=== PATIENT | female | born 1995 | race Caucasian/White ===

== ENCOUNTER 2017-06-19 20:41 | Emergency (ER) | payer BC ==
[~2017-06-19] VITALS: Ht 162.6 cm; Wt 110.8 kg
[2017-06-19 20:44] VITALS: BP 130/78; TEMP 98.8
[2017-06-19 21:26] VITALS: PULSE 111
== END 2017-06-19 21:30 | disposition home or self-care (01) ==
LOC: COL.ER 20:41
DX: S96.911A Strain of unspecified muscle and tendon at ankle and foot level, right foot, initial encounter (principal); X50.0XXA Overexertion from strenuous movement or load, initial encounter; Y92.009 Unspecified place in unspecified non-institutional (private) residence as the place of occurrence of the external cause